=== PATIENT | female | born 2000 | race Caucasian/White ===

== ENCOUNTER 2022-05-01 02:38 | Day surgery (SDC) | payer OTHER, SELFPAY ==
[2022-04-28 12:06] VITALS: BMI 18.6
--- NOTE | 2022-04-28 12:11 | PC.NURSE ---
Report to the Outpatient Waiting Room, entrance under the green pavilion located off [facility], at time 1200 on date 05/01/22. Planned Procedure Time: 1400. Time changes happen often and if your time is changed the preop area will call you the afternoon before. - You and your visitor will be asked to self-screen and do not enter if you have any COVID symptoms. - We encourage only one visitor and NO visitors under age 16 are allowed at this time. Your visitor will receive communication by the phone number that is given day of service. - The patient visitor is requested to social distance or may leave the building when not with patient due to restrictions. - A mask is OPTIONAL within the hospital. Patients may have clear liquids (water, carbonated beverages, clear teas, apple juice) until 3 hours prior to surgery with a maximum of 20 ounces. - No food from midnight until time of surgery Take the following medications with a SIP of water the morning of surgery: NONE Medications to discontinue per physician: N/A Date to take last dose: N/A Please no make-up, nail maori, hairspray, perfume, deodorant, or body powder the day of surgery. No jewelry (including any body piercings) or valuables the day of surgery, leave them at home. Please take a shower or bath the night before, or the morning of, surgery with an antibacterial soap. Wear comfortable, loose fitting clothing. - Jewelry must be removed prior to entering the operating room. Rings and piercings that are not removed may be cut off. - The hospital will not accept responsibility for valuables. - Please leave all valuables, including medications, at home the day of surgery. If you are going home after surgery, a licensed automation driver must drive you home. - NO public transportation without another adult. - We recommend that an adult stay with you for 24 hours following discharge. - We also recommend that you do not drive, make important decision, drink alcoholic beverages, or take any drugs that were not prescribed by your health care provider for at least 24 hours after your discharge time. Follow any additional instructions given to you from your surgeon. If you or anyone in your household have experienced Covid symptoms in the past week, please notify your surgeon or the nurse liaison at the phone number below for possible testing. Telephone instructions given to PT - TERESA HAN and asked if any additional questions and then verbalized understanding. Patient advised to call surgeon office or pre surgery nurse liaison [phone] if any additional questions.
--- NOTE | 2022-04-29 12:41 | PM.IMHP ---
H&P: HPI History of Present Illness Date/Time: 04/29/22 12:41 Chief Complaint: Missed A/B first-trimester Narrative: A 19-year-old 1 para 0 who is 10 weeks gestation with 7 week demise admitted for suction dilatation curettage. Ultrasound has shown no growth and debris in the uterus. Risks and benefits reviewed in full [facility] Past Medical History Medical History Amenorrhea, primary Anxiety Suppression of menstruation Family History Family History Grandparent Diabetes mellitus maternal grandmother Other Carcinoma of colon maternal uncle Other Acute leukemia Acute myocardial infarction Cerebrovascular accident Social History Social History (Updated 03/30/22 @ 09:53 by YONI Mcclellan) Smoking status: Current every day smoker Tobacco type: e-cigarettes/vaping Alcohol intake: never Substance use: never Substance use type: does not use Living arrangements: with family Gender identity (if verbalized by the patient): Female Sexual Orientation (if Verbalized by the Patient): Straight or Heterosexual Spiritual care concerns: No Meds Home Medications and Allergies Home Medications Medication Instructions Recorded Confirmed Type loratadine 10 mg tablet 10 mg PO DAILY PRN Allergy Symptoms 04/28/22 04/28/22 History Allergies Allergy/AdvReac Type Severity Reaction Status Date / Time benzonatate Allergy Anaphylaxis Verified 04/28/22 12:05 [From Jasmyne Lopez] Exam Const: General: cooperative, healthy appearing, comfortable and average body habitus Orientation/consciousness: oriented to person, oriented to place and oriented to time HENMT: Head: normal to inspection Resp: Effort & Inspection: normal respiratory effort Cardio: Rate: regular rate Rhythm: regular rhythm Heart sounds: S1 normal heart sound present and S2 normal heart sound present GI: Inspection: normal to inspection Auscultation: normal bowel sounds : External Female Exam: normal external appearance Speculum Exam - Vagina: normal appearance of the vagina Speculum Exam - Cervix: normal appearance of the cervix Bimanual exam- vagina & uterus: enlarged Bimanual Exam- Adnexa, other: normal adnexae Assessment and Plan Assessment and plan (1) Missed : Code(s): O02.1 - Missed Status: Acute Plan Suction dilatation and curettage
--- NOTE | 2022-05-01 06:57 | WPDHPUPDATE1 ---
History and Physical Update Update Date/Time: 05/01/22 06:57 History and Physical has been reviewed, including an updated exam of the patient. There are NO changes in the patient's condition. Risks, benefits, and alternatives have been discussed and questions answered. Patient agrees to proceed with procedure.
[2022-05-01] MEDS: ACETAMINOPHEN 500 MG TABLET 1000 MG PO (12:23)
[2022-05-01] MEDS: LACTATED RINGERS 1,000 ML 30 ML IV CONT (12:30)
[2022-05-01 12:45] VITALS: BP 111/61; PULSE 74; RESP 16; TEMP 37; O2SAT 100
--- NOTE | 2022-05-01 13:31 | P.PNAN_ITS ---
Anes - Initial Pre Proc Eval Procedure: Operation Date: 05/01/22 14:00 Proposed Procedures p Suction Dilation and Curettage - Jose Angel Mendosa MD Date/Time: 05/01/22 13:31 Surgeon: Jose Angel Mendosa MD Pre Op Diagnosis: Missed AB Patient Data Age: 21 Gender: F Height: 1.57 m Weight: 46.1 kg Last Vital Signs Temp 98.6 F 05/01/22 12:45 Pulse 74 05/01/22 12:45 Resp 16 05/01/22 12:45 BP 111/61 05/01/22 12:45 Pulse Ox 100 05/01/22 12:45 O2 Del Method Room Air 05/01/22 12:45 Allergies Allergy/AdvReac Type Severity Reaction Status Date / Time benzonatate Allergy Anaphylaxis Verified 05/01/22 13:18 [From Jasmyne Lopez] Home Medications Medication Instructions Recorded Confirmed Type loratadine 10 mg tablet 10 mg PO DAILY PRN Allergy Symptoms 04/28/22 05/01/22 History hydrocodone 5 mg-acetaminophen 325 1 tablet PO Q4H PRN pain #20 tabs 05/01/22 Rx mg tablet Patient hx anesthesia problems: none Family hx anesthesia problems: none Results Review: All pre-operative results and documents have been reviewed as part of the pre- operative evaluation. [facility] Past Medical History Medical History Amenorrhea, primary Anxiety Suppression of menstruation Family History Family History Grandparent Diabetes mellitus maternal grandmother Other Carcinoma of colon maternal uncle Other Acute leukemia Acute myocardial infarction Cerebrovascular accident Social History Social History (Updated 03/30/22 @ 09:53 by YONI Mcclellan) Smoking status: Current every day smoker Tobacco type: e-cigarettes/vaping Alcohol intake: never Substance use: never Substance use type: does not use Living arrangements: with family Gender identity (if verbalized by the patient): Female Sexual Orientation (if Verbalized by the Patient): Straight or Heterosexual Spiritual care concerns: No Anes - Eval Final PreProcedure Day of Procedure 05/01/22 13:31 Patient weight: normal Heart: regular rate and rhythm Lungs: clear to auscultation Airway: Mallampati scale class II Neurological: alert and oriented Last oral intake: >/= 8 hours ASA classification: II Emergent: no Anesthetic plan: proceed Anesthesia type and monitoring: general GIVS and standard monitoring Results Review: All pre-operative results and documents have been reviewed as part of the pre- operative evaluation. Informed Consent: The patient's anesthetic plan and its attendant risks and benefits were discussed with the patient/family/POA. Questions were solicited and answers provided to the satisfaction of the patient/family/POA.
[2022-05-01] MEDS: LIDOCAINE HCL 1% PF 30 ML VIAL 10 ML INFILTRATE (13:50)
--- NOTE | 2022-05-01 13:54 | W.PM.PROC2 ---
Procedure Note - Detailed Date of Procedure 05/01/22 Pre-op Diagnosis Missed AB Post-op Diagnosis Same Procedure Performed Suction dilatation and curettage Surgeon Jose Angel Mendosa MD Anesthesia MAC and Local Indications is a 21-year-old 1 para 0 who is admitted for suction D&C secondary to 1st trimester missed A/B Findings uterus sounds to 10cm. Tissue consistent with products of conception Description of Procedure patient was prepped draped in the normal sterile fashion placed in the dorsal lithotomy position. Under excellent IV sedation weighted speculum placed in posterior fornix vagina. Anterior lip of the cervix grasped with single-tooth tenaculum. 2.5cc 1% xylocaine and a T anesthesia placed at 2, 4, 8, 10:00 a.m. respectively of the uterus. Uterus then sounded to 10cm. Serial dilatation with fragmented dilators performed followed by passage of the 10. Suction curette removing moderate to large amount of placental tissue. When no further tissue could be removed a good grating sound was heard. The instruments withdrawn. Patient tolerated the procedure well. Blood loss was estimated 25cc. All sponge, needle, instrument counts were correct. There were no immediate complications noted Estimated Blood Loss 25 Drains No Packing No Pathology Yes Complications No immediate complications Condition Stable Disposition PACU
[2022-05-01 14:00] VITALS: BP 83/45; PULSE 62; RESP 14; O2SAT 100
[2022-05-01 14:30] VITALS: BP 96/58; PULSE 62; RESP 14; O2SAT 100
[2022-05-01 14:50] VITALS: BP 109/66; PULSE 59; RESP 14; O2SAT 100
[2022-05-01 15:15] VITALS: BP 99/55; PULSE 52; RESP 14
== END 2022-05-01 15:38 | disposition home or self-care (01) ==
PROVIDERS: Visit Provider Obstetrics & Gynecology
PROC: (CPT 59820; principal; 2022-05-01 14:00)
DX: O02.1 Missed abortion (principal); F17.290 Nicotine dependence, other tobacco product, uncomplicated
CPT/HCPCS: 59820; 36415; 85461; 86850; 86900; 86901; 88305; A9270; J2250; J2704; J3010; J7120